=== PATIENT | male | born 1990 | race Hispanic/Latino ===

== ENCOUNTER 2016-07-04 14:07 | Emergency (ER) | payer OTHER ==
[~2016-07-04] VITALS: Ht 172.7 cm; Wt 102.1 kg
[2016-07-04 14:14] VITALS: BP 124/80
--- NOTE | 2016-07-04 14:27 | ED NECK/BACK PAIN COMPLAINT ---
History of Present Illness General Chief Complaint: Low Back Pain/Injury Stated Complaint: RIGHT SIDE BACK PAIN X2DAYS, WORSE TODAY Source: patient Exam Limitations: no limitations Vital Signs & Intake/Output Vital Signs & Intake/Output Vital Signs Date Time Temp Pulse Resp B/P B/P Pulse O2 O2 Flow FiO2 Mean Ox Delivery Rate 07/04 1414 97.8 70 18 124/80 98 Room Air ED Intake and Output 07/05 0000 07/04 1200 Intake Total Output Total Balance Patient 225 lb Weight Weight Reported by Patient Measurement Method Allergies Coded Allergies: No Known Allergies (07/04/16) Reconcile Medications Cyclobenzaprine HCl 10 MG TABLET 1 TAB PO TID PRN muscle relaxant may cause drowsiness Meloxicam (Mobic) 15 MG TABLET 1 TAB PO DAILY PRN PAIN/INFLAMMATION Oxycodone HCl/Acetaminophen (Percocet 5-325 MG Tablet) 5 MG-325 MG TABLET 1 TAB PO Q6H PRN PAIN may cause drowsiness Triage Note: TRIAGE: PATIENT TO ER FROM HOME REPORTING R MIDDLE BACK PAIN SINCE YESTERDAY, INCREASED TODAY. DENIES ANY KNOWN INJURY. DENIES N/V/D/ URINARY PAIN/ AND PAIN. Triage Nurses Notes Reviewed? yes HPI: Patient patient is a 26-year-old male presents complaining of right mid back pain. Pain 2 days. Pain is a sharp pain with intermittent spasms. Patient reports pain is currently severe, worsens with movement and bending. Patient has not taken any medication for his symptoms prior to arrival. 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 Patient does not recall any specific injury. Patient denies abdominal pain, dysuria, hematuria, numbness, weakness. (CR[employer]ET [place]) Past History Travel History Traveled to [place] past 21 day No Medical History Any Pertinent Medical History? none Neurological: NONE EENT: NONE Cardiovascular: NONE Respiratory: NONE Gastrointestinal: NONE Hepatic: NONE Renal: NONE Musculoskeletal: NONE Psychiatric: NONE Endocrine: NONE Blood Disorders: NONE Cancer(s): NONE IRON MELTER/Reproductive: NONE Surgical History Surgical History: RIGHT KNEE SX Psychosocial History What is your primary language Faroese Tobacco Use: Never used Family History Hx Contributory? No (CRICKET [place]) Review of Systems Review of Systems Constitutional: Denies: chills, fever. Eyes: Reports: no symptoms. Ears, Nose, Throat, Mouth: Reports: no symptoms. Respiratory: Denies: short of breath. Cardiovascular: Denies: chest pain. Gastrointestinal/Abdominal: Denies: abdominal pain, nausea, vomiting. Musculoskeletal: Reports: see HPI. Skin: Reports: no symptoms. Neurological/Psychological: Denies: numbness, paresthesia. (CR[employer]ET [place]) Physical Exam Physical Exam General Appearance: well developed/nourished, alert, awake Head: atraumatic, normal appearance Eyes: Bilateral: normal appearance. Ears, Nose, Throat, Mouth: hearing grossly normal, moist mucous membrane Neck: normal inspection, supple, full range of motion Respiratory: normal breath sounds, no respiratory distress, lungs clear Cardiovascular: regular rate/rhythm Gastrointestinal: soft, non-tender Back: normal inspection, normal range of motion, muscle spasm (right inferior thoracic) Extremities: non-tender, normal range of motion, right hip flexion causes increase in muscle spasm sensation Straight Leg Raising: Right: Negative. Left: Negative. DTR: Patellar: 2: L4 Right. Achilles: 2: S1 Right. Neurologic/Psych: no motor/sensory deficits, awake, alert, oriented x 3, normal gait, normal mood/affect Diagram Body: 1) area of pain and spasm (CR[employer] [place]) Progress Differential Diagnosis: AAA, herniated disc, myofascial strain, pyelo/UTI, spinal cord inj, T/L spine injury, ureterolithiasis Plan of Care: Current Medications Sig/Windy Start time Last Medication Dose Stop Time Status Admin Oxycodone/ 1 TAB ONCE ONE 07/04 1530 UNVr Acetaminophen 07/04 1531 (Percocet) No red flags on exam or by history. Labs and imaging deferred secondary to exam. 1515: Patient reports mild improvement in his symptoms after Toradol and Valium. Pain mild lying supine. Pain continues to be severe with lumbar/thoracic flexion. (CR[employer]ET [place]) Departure Departure Time of Disposition: 1517 Disposition: HOME OR SELF CARE Condition: Stable Clinical Impression Primary Impression: Spasm of thoracic back muscle Referrals: LOAN HOLGUIN (PCP/Family) Additional Instructions: Apply heat to the affected area for 20 minutes 4-5 times a day. Follow up with your primary doctor if no improvement within 2-3 days. Return to the ER if numbness, weakness, incontinence, pain uncontrollable or worsening of symptoms. Departure Forms: Customer Survey General Discharge Information Prescriptions: Current Visit Scripts Meloxicam (Mobic) 1 TAB PO DAILY PRN PAIN/INFLAMMATION #10 TAB Cyclobenzaprine HCl 1 TAB PO TID PRN muscle relaxant #30 TAB may cause drowsiness Oxycodone HCl/Acetaminophen (Percocet 5-325 MG Tablet) 1 TAB PO Q6H PRN PAIN #10 TAB may cause drowsiness (RK ESCOBAR,CRICKET) PA/ONLINE ACTIVIST Co-Sign Statement Statement: ED Attending supervision documentation- [] I saw and evaluated the patient. I have also reviewed all the pertinent lab results and diagnostic results. I agree with the findings and the plan of care as documented in the PA's/ONLINE ACTIVIST's documentation. [X] I have reviewed the ED Record and agree with the PA's/ONLINE ACTIVIST's documentation. [] Additions or exceptions (if any) to the PAs/ONLINE ACTIVIST's note and plan are summarized below: [] (AGUS IQBAL,CARRI Bethea)
[2016-07-04] MEDS ORDERED: PERCOCET 5-3251 EACH PO (15:21)
[2016-07-04] MEDS ORDERED: CYCLOBENZAPRINE10 M1 PO (15:21)
[2016-07-04] MEDS ORDERED: MOBIC15 M1 PO (15:21)
== END 2016-07-04 15:27 ==
LOC: ERH 14:07
DX: M62.830 Muscle spasm of back (principal)
CPT/HCPCS: 96372; J1885; J3360